=== PATIENT | female | born 1935 | race African-American/Black ===

== ENCOUNTER 2016-11-26 12:41 | Emergency (ER) | payer OTHER ==
[~2016-11-26] VITALS: Ht 167.6 cm; Wt 59.4 kg
--- NOTE | ~2016-11-26 | EKG ---
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: Adam HOBSON : 1935 Requested By: Simone Potts Order Number: [id number] MD: Ricardo Beck Measurements Intervals [place] Rate: 68 P: 63 RI: 143 QRS: -8 QRSD: 94 T: 60 QT: 401 QTc: 427 Interpretive Statements Sinus rhythm Consider left ventricular hypertrophy Compared to ECG 11/05/2016 10:10:17 Myocardial infarct finding no longer present Electronically Signed On 11-26-2016 14:22:06 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
[~2016-11-26 12:41] MED LIST: ACETAMINOPHEN-1 EAC1 PO; BENZTROPINE ME0.5 MG PO; ENOXAPARIN40 MG/0.1 SUBQ; IRON325 PO; KLOR-CON 1010 MEQ PO; LASIX 40 MG TAB40 M2 PO; LISINOPRIL20 MG PO; LOVASTATIN 20 M20 MG PO; METOPROLOL SUCC25 M1 PO; MINOCIN100 MG PO; PROBIOTIC1 EAC2 PO; RISPERDAL0.5 MG PO; SENOKOT-S1 TA1 PO; TRAZODONE 150150 M1 PO; TRILEPTAL150 MG PO; VITAMIN B12; VITAMIN D3 PO; ZANTAC 150MG T150 MG PO; ZYPREXA5 MG
[2016-11-26 13:25] LABS: HEMATOCRIT 31.6 % (37.0-47.0); HEMOGLOBIN 10.2 gm/dL (12.0-15.0); MCH 26.3 pg (26.0-34.0); MCHC 32.2 % (28.0-37.0); MCV 81.7 fL (80.0-100.0); PLATELET COUNT 356 thou/uL (150-400); RBC 3.87 mil/uL (4.20-5.00); RDW 17.2 % (10.5-14.5); WBC 6.6 thou/uL (4.0-11.0)
[2016-11-26 13:30] LABS: MANUAL DIFF YES
[2016-11-26 13:39] LABS: CALCIUM 9.8 mg/dL (8.5-10.1); CREATININE 0.7 mg/dL (0.6-1.3); POTASSIUM 4.4 mmol/L (3.5-5.1)
[2016-11-26 13:45] LABS: ALBUMIN 2.8 g/dL (3.4-5.0); TOTAL BILIRUBIN 0.4 mg/dL (<0.1-1.0); TOTAL PROTEIN 6.9 g/dL (6.4-8.2)
[2016-11-26 13:50] LABS: URINE BILIRUBIN NEGATIVE (Negative); URINE BLOOD NEGATIVE (Negative); URINE COLOR YELLOW; URINE GLUCOSE-RANDOM* NEGATIVE (Negative); URINE KETONES NEGATIVE (Negative); URINE LEUKOCYTES-REFLEX NEGATIVE (Negative); URINE PROTEIN (DIPSTICK) NEGATIVE (Negative); URINE UROBILINOGEN 0.2 E.U./dl (0.2-1.0)
[2016-11-26 13:56] LABS: ABSOLUTE NEUTROPHILS 4.8 thou/uL (1.4-8.2); ANISOCYTOSIS 1+; ATYPICAL LYMPHS 1 %; TOTAL CELL COUNT 100
== END 2016-11-26 17:39 ==
LOC: ER 12:41
PROVIDERS: Emergency Medicine
DX: R41.82 Altered mental status, unspecified (principal); R10.31 Right lower quadrant pain; F17.210 Nicotine dependence, cigarettes, uncomplicated; I10 Essential (primary) hypertension; F03.90 Unspecified dementia, unspecified severity, without behavioral disturbance, psychotic disturbance, mood disturbance, and anxiety; F41.9 Anxiety disorder, unspecified; K21.9 Gastro-esophageal reflux disease without esophagitis; E78.5 Hyperlipidemia, unspecified; F10.99 Alcohol use, unspecified with unspecified alcohol-induced disorder; Z88.2 Allergy status to sulfonamides; Z88.0 Allergy status to penicillin; Z88.8 Allergy status to other drugs, medicaments and biological substances

== ENCOUNTER 2018-05-06 10:25 | Emergency (ER) | payer OTHER ==
[~2018-05-06] VITALS: Ht 167.6 cm; Wt 56.0 kg
[2018-05-06] MEDS ORDERED: AMITIZA 24 MCG24 MC1 PO (11:06)
[2018-05-06] MEDS ORDERED: VITAMIN B-12500 MCG PO (11:07)
[2018-05-06] MEDS ORDERED: NORVASC5 MG PO (11:07)
[2018-05-06] MEDS ORDERED: ERGOCALCIF50000 UNIT PO (11:08)
[2018-05-06] MEDS ORDERED: LASIX 20 MG TAB20 MG PO (11:09)
[2018-05-06] MEDS ORDERED: REMERON15 MG PO (11:10)
[2018-05-06] MEDS ORDERED: SENNA8.6 MG PO (11:11)
[2018-05-06] MEDS ORDERED: ACETAMINOPHEN-1 EAC1 PO (11:11)
== END 2018-05-06 16:49 | disposition home or self-care (01) ==
LOC: ER 10:25
DX: M25.552 Pain in left hip (principal); M54.9 Dorsalgia, unspecified; I10 Essential (primary) hypertension; F41.9 Anxiety disorder, unspecified; E78.5 Hyperlipidemia, unspecified; F17.210 Nicotine dependence, cigarettes, uncomplicated; Z88.0 Allergy status to penicillin; Z88.1 Allergy status to other antibiotic agents; Z88.8 Allergy status to other drugs, medicaments and biological substances; Z86.2 Personal history of diseases of the blood and blood-forming organs and certain disorders involving the immune mechanism; W18.39XA Other fall on same level, initial encounter; Y93.89 Activity, other specified; Y92.89 Other specified places as the place of occurrence of the external cause; Y99.8 Other external cause status

== ENCOUNTER 2020-05-14 20:56 | Emergency (ER) | payer OTHER ==
[~2020-05-14] VITALS: Ht 162.6 cm; Wt 59.0 kg
[~2020-05-14 20:56] MED LIST changes: +AMITIZA 24 MCG24 MC1 PO; +ERGOCALCIF50000 UNIT PO; +LASIX 20 MG TAB20 MG PO; +NORVASC5 MG PO; +REMERON15 MG PO; +SENNA8.6 MG PO; +VITAMIN B-12500 MCG PO
[2020-05-14 21:27] LABS: URINE BILIRUBIN NEGATIVE (Negative); URINE BLOOD TRACE (Negative); URINE CLARITY SL CLOUDY; URINE COLOR YELLOW; URINE GLUCOSE-RANDOM* NEGATIVE (Negative); URINE KETONES NEGATIVE (Negative); URINE LEUKOCYTES-REFLEX NEGATIVE (Negative); URINE NITRITE-REFLEX NEGATIVE (Negative); URINE PROTEIN (DIPSTICK) 3+ (Negative); URINE SPECIFIC GRAVITY >= 1.030 (1.005-1.035); URINE UROBILINOGEN 0.2 E.U./dl (0.2-1.0)
[2020-05-14 21:36] LABS: SQUAMOUS 4-10 Moderate /LPF (0-3)
[2020-05-14 21:37] LABS: AMORPHOUS URATES Moderate /LPF (None Seen); BACTERIA-REFLEX 1-9 Few /HPF (None Seen); CASTS None Seen /LPF (None Seen); URINE RBC 0-2 Rare /HPF (0-2); URINE WBC-REFLEX None Seen /HPF (0-5)
[2020-05-14 21:38] LABS: AMP/METHAMP Negative (Negative); BARBITURATES Negative (Negative); BENZODIAZEPINES Negative (Negative); COCAINE Negative (Negative); METHADONE Negative (Negative); OPIATES POSITIVE (Negative); PCP Negative (Negative)
[2020-05-14 21:47] LABS: ABSOLUTE NEUTROPHILS 5.7 thou/uL (1.4-8.2); BASOPHILS 0.2 % (0.0-2.0); EOSINOPHILS 0.2 % (0.0-3.0); HEMATOCRIT 43.8 % (37.0-47.0); HEMOGLOBIN 13.7 gm/dL (12.0-15.0); LYMPHOCYTES 7.6 % (24.0-44.0); MCH 26.8 pg (26.0-34.0); MCHC 31.2 g/dL (28.0-37.0); MONOCYTES 4.6 % (1.0-8.0); PLATELET COUNT 273 thou/uL (150-400); POLYS 87.4 % (36.0-66.0); RBC 5.09 mil/uL (4.20-5.00); RDW 16.1 % (10.5-14.5); WBC 6.5 thou/uL (4.0-11.0)
[2020-05-14 22:01] LABS: ALBUMIN 3.5 g/dL (3.4-5.0); CALCIUM 10.2 mg/dL (8.5-10.1); CREATININE 3.6 mg/dL (0.6-1.0); MAGNESIUM 2.8 mg/dL (1.8-2.4); POTASSIUM 2.9 mmol/L (3.5-5.1); TOTAL BILIRUBIN 1.2 mg/dL (0.2-1.0); TOTAL PROTEIN 7.9 g/dL (6.4-8.2); TROPONIN-I 0.08 ng/mL (<0.06)
[2020-05-15 02:32] VITALS: BP 00/00
--- NOTE | 2020-05-15 07:42 | EKG ---
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 : 1935 Requested By: Artem Boyd Order Number: [id number] MD: Jeff Mart Measurements Intervals [place] Rate: 91 P: 44 NV: 127 QRS: -19 QRSD: 88 T: 97 QT: 370 QTc: 456 Interpretive Statements Sinus rhythm Abnormal R-wave progression, late transition Left ventricular hypertrophy Nonspecific T abnormalities, lateral leads Compared to ECG 11/26/2016 13:24:19 ST segment abnormality is now present Electronically Signed On 05-15-2020 7:42:12 CDT by Jeff Mart [email or web address] <ELECTRONICALLY SIGNED> By: Jeff Mart MD, [facility] 05/15/20 0742 17 17 Jeff Mart MD, FAC /EPI
== END 2020-05-14 22:27 ==
LOC: ER 20:56
PROVIDERS: Emergency Medicine
DX: I46.9 Cardiac arrest, cause unspecified (principal); N17.9 Acute kidney failure, unspecified; R41.82 Altered mental status, unspecified; E83.51 Hypocalcemia; E87.2 Acidosis; R79.89 Other specified abnormal findings of blood chemistry; E78.5 Hyperlipidemia, unspecified; K21.9 Gastro-esophageal reflux disease without esophagitis; I10 Essential (primary) hypertension; F17.210 Nicotine dependence, cigarettes, uncomplicated; Z86.2 Personal history of diseases of the blood and blood-forming organs and certain disorders involving the immune mechanism; Z79.899 Other long term (current) drug therapy; Z79.82 Long term (current) use of aspirin; Z88.0 Allergy status to penicillin; Z88.2 Allergy status to sulfonamides; Z88.8 Allergy status to other drugs, medicaments and biological substances; Z03.818 Encounter for observation for suspected exposure to other biological agents ruled out